=== PATIENT | female | born 1995 | race Caucasian/White ===

== ENCOUNTER 2021-07-16 23:10 | Outpatient (CLI) | payer OTHER ==
[~2021-07-16] VITALS: Ht 165.1 cm; Wt 86.8 kg
--- NOTE | 2021-07-16 23:15 | NUR ---
G1L0. 29-5. Ambulatory to LDR 5 with spouse. EFM and TOCO explained and applied. Pt reports getting home from a 11 hour car ride from [place] for her baby shower when she went to go see her cat. She turned to look up the stairs when her sock slipped and she fell down her carpet stairs on her right side all the way down. Pt reports feeling "sore" to her right side and when she took a deep breath in she felt a sharp pain to her right lower quadrent of abdomen. Denies taking anything for pain. Denies leaking of fluids or vaginal bleeding. Pt states she has been having polly yepez contractions for the past couple weeks but has not had any contractions since her fall. Pt also reports minimal movement from baby since falling. Once pt laid in bed visual movement of fetus noted. Pt reports " this is the most movement I have had since the fall." Plan of care explained. Pt relieved once hearing FHR. 2340: at nurses station and reviews FHR strip. Update given. See physican notification. Pt and spouse updated on plan of care and observing for 4 hours.
[2021-07-16 23:30] VITALS: BP 117/72; PULSE 91; TEMP 98.3
[2021-07-16] MEDS ORDERED: ZOLOFT 100MG100 MG PO (23:30)
[2021-07-17] VITALS: BP 108/63; PULSE 86
--- NOTE | 2021-07-17 03:25 | NUR ---
Pt denies feeling contractions or pain. Category 1 FHR tracing. Reviewed discharge plan with patient and spouse and return precautions. Pt seen ambulating off unit with spouse and belongings.
== END 2021-07-17 03:30 | disposition home or self-care (01) ==
LOC: LDRO 23:10
DX: O9A.219 Injury, poisoning and certain other consequences of external causes complicating pregnancy, unspecified trimester (principal); Z3A.00 Weeks of gestation of pregnancy not specified; W10.9XXA Fall (on) (from) unspecified stairs and steps, initial encounter

== ENCOUNTER 2021-08-28 14:42 | Outpatient (CLI) | payer OTHER ==
[~2021-08-28] VITALS: Ht 165.1 cm; Wt 90.9 kg
[~2021-08-28 14:42] MED LIST: ZOLOFT 100MG100 MG PO
[2021-08-28 15:15] VITALS: BP 122/68; PULSE 125; TEMP 98.3
--- NOTE | 2021-08-28 15:31 | NUR ---
1455 PT ARRIVED TO L&D C/O CONTRACTIONS AND SUSPECTED ROM @ 1330. PT DENIES VAGINAL BLEEDING AND DECREASED MOVEMENT. PLACED IN ROOM 5 FOR FURTHER ASSESSMENT.
[2021-08-28] MEDS ORDERED: BENADRYL50 MG PO (15:45)
[2021-08-28] MEDS ORDERED: PNV-DHA1 SGL PO (15:46)
[2021-08-28] MEDS ORDERED: XYZAL5 MG PO (15:46)
--- NOTE | 2021-08-28 16:08 | NUR ---
1600- PT DISCHARGED FROM L&D IN STABLE CONDITION WITH NO COMPLAINTS. PT TO KEEP APPOINTMENT AND FOLLOW UP AT CLINIC ON 08/29/21. PT VERBALIZED UNDERSTANDING. LABOR PRECAUTIONS AND KICK COUNTS EXPLAINED TO PT. PT VERBALIZED UNDERSTANDING.
== END 2021-08-28 16:00 | disposition home or self-care (01) ==
LOC: LDRO 14:42
DX: Z34.93 Encounter for supervision of normal pregnancy, unspecified, third trimester (principal); Z3A.35 35 weeks gestation of pregnancy

== ENCOUNTER 2021-09-04 07:06 | Inpatient (IN) | payer OTHER ==
[~2021-09-04] VITALS: Ht 165.1 cm; Wt 92.7 kg
[~2021-09-04 07:06] MED LIST changes: +BENADRYL50 MG PO; +PNV-DHA1 SGL PO; +XYZAL5 MG PO
--- NOTE | 2021-09-04 21:00 | NUR ---
G1 at 36 weeks and 6 days gestation arrives to unit ambulatory for scheduled induction of labor. Pt oriented to room, call light within reach, bed in low and locked position. Clean gown on. US and toco explained and applied. Pt denies feeling strong contractions, denies LOF or vaginal bleeding. Reports good movement. Has PUPPPs rash and has severe episodes of itching. Takes 50 mg of benadryl PO every 4 hours. SVE fingertip/60/-3. Pt states she was told the cytotec would be placed vaginally but it is ordered as PO. Pt would prefer vaginal if possible. Admission assessment and vital signs completed.
[2021-09-04 21:30] VITALS: BP 130/81; PULSE 113; TEMP 98.4
--- NOTE | 2021-09-04 21:40 | NUR ---
18G IV started in left hand after 1 attempt. Admission labs obtained off IV site. Lactated Ringers infusing to gravity. Consents reviewed and signed with patient spouse. All questions answered.
[2021-09-04 22:00] VITALS: BP 122/75; PULSE 106
--- NOTE | 2021-09-04 22:05 | NUR ---
25 mcg of cytotec placed to posterior fornix of vagina per patients request. Pt positioned to wedge right for comfort. Reviewed plan of care. Bed in low and locked position, call light within reach.
[2021-09-04 22:15] VITALS: BP 121/56; PULSE 107
[2021-09-04 22:45] VITALS: BP 109/63; PULSE 99
[2021-09-04 22:55] LABS: BASO % 0.2 % (0.0-2.0); EOS # 0.2 K/mm3 (0.0-0.7); EOS % 2.3 % (0.0-4.0); GRAN # 7.4 K/mm3 (1.4-6.5); GRAN % 70.9 % (42.2-75.2); LYMPH # 1.9 K/mm3 (1.2-3.4); LYMPH % 18.3 % (20.0-51.0); MEAN CELL VOLUME 83 fl (80.0-100.0); MEAN CORPUSCULAR HGB CONC 32 g/dl (33.0-37.0); MEAN PLATELET VOLUME 11.5 fl (7.4-10.4); MONO # 0.8 K/mm3 (0.1-0.6); MONO % 7.7 % (1.7-9.3); PLATELET COUNT 231 K/mm3 (130-400); REDCELL DISTRIBUTION WIDTH-CV 14.5 % (11.5-14.5)
[2021-09-04 22:58] LABS: HEMATOCRIT 27.5 % (37.0-47.0); HEMOGLOBIN 8.9 g/dl (12.5-16.0); MEAN CORPUSCULAR HEMOGLOBIN 27 pg (27-31)
[2021-09-04 23:15] VITALS: BP 123/70; PULSE 97
[2021-09-04 23:45] VITALS: BP 125/74; PULSE 91
[2021-09-05] VITALS (46 sets, daily range): BP systolic 98–145; BP diastolic 51–82; PULSE 76–116; TEMP 97.7–98.6
--- NOTE | 2021-09-05 | NUR ---
Monitors off, pt up to bathroom to void. Pt appears to be uncomfortable with contractions and states she is feeling them every 2-3 minutes. Upon returning to bed, pt excessively scratching sides, abdomen, and back. States that the movement from getting out of bed triggered her itching. 0010 - Pt takes own benadryl 50 mg at this time. 0030 - Pt continues to scratch excessively and is visibly uncomfortable and tearful. Does not appear to be coping well. Difficulty tracing FHR at this time due to her scratching. 0040 - Pt remains to appear to be in a state of panic and not coping well due to her PUPPPs rash flaring up and scratching excessively. FHR tachycardic in the 180s. Contractions tracing every 1.5-3 minutes but patient does not complain of contraction pain at this time. Anti-itch lotion applied, ice packs provided. Encouraged patient to take slow deep breaths and try to relax.
[2021-09-05] MEDS ORDERED: PREDNISONE 2.52.5 MG PO (01:21)
--- NOTE | 2021-09-05 01:45 | NUR ---
Pt complaining of constant pain shooting down left leg. Assisted patient to change position at this time with immediate relief. Pt appears to be uncomfortable with contractions as well. SVE /-3. Reviewed with patient that since her cervix has changed since admission and she is feeling painful contractions, will evaluate in 2 hours to see if next dose of cytotec needs to be given. Pt verbalized understanding.
--- NOTE | 2021-09-05 03:00 | NUR ---
[id number] FHR tracing not recording on paper during this time. Refer to electronic record.
--- NOTE | 2021-09-05 04:02 | NUR ---
Monitors off, pt up to bathroom to void. Pt takes own benadryl orally, 50 mg. SVE /-.
--- NOTE | 2021-09-05 04:09 | NUR ---
SVE unchanged over the last 2 hours and patient does not appear to be uncomfortable with contractions. 25 mcg of cytotec placed to posterior fornix of vagina at this time. Reviewed plan of care. Call light within reach, bed in low and locked position. Spouse supportive at bedside.
--- NOTE | 2021-09-05 07:54 | NUR ---
0730 - UPDATE GIVEN TO DR PHILL, NO NEW ORDERS
--- NOTE | 2021-09-05 09:43 | NUR ---
FHT'S and CTXS INDETERMINATE D/T MATERNAL POSITION
--- NOTE | 2021-09-05 09:47 | NUR ---
FHT'S AND CTXS INDETERMINATE D/T MATERNAL POSITION, RN AT BEDSIDE ADJUSTING US. DR ROLES TO BEDSIDE, SVE DONE /-
--- NOTE | 2021-09-05 13:33 | NUR ---
PT REQUESTING EPIDURAL
--- NOTE | 2021-09-05 13:36 | NUR ---
[employer] TE[employer]ER NOTIFIED PT REQUESTING EPIDURAL, LR BOLUS STARTED
--- NOTE | 2021-09-05 13:42 | NUR ---
1245 - C KAITLIN ECHAVARRIA AND EDA FOLEY TO ROOM FOR EPIDURAL, PT SITTING UP ON SIDE OF BED, ANXIOUS ABOUT EPIDURAL
--- NOTE | 2021-09-05 13:44 | NUR ---
SITTING UP ON SIDE OF BED FOR EPIDURAL, FHT'S AND CTXS INDETERMINATE D/T MATERNAL POSITION
--- NOTE | 2021-09-05 13:48 | NUR ---
1315 - TO RIGHT SIDE AFTER EPIDURAL, PT MORE COMFORTABLE NOW, FHT'S INDETERMINATE, US ADJUSTED
--- NOTE | 2021-09-05 16:24 | NUR ---
UTERINE CTXS NOT TRACING D/T MATERNAL POSITION, TOCO ADJUSTED
--- NOTE | 2021-09-05 16:29 | NUR ---
SOLU CORTEF GIVEN IV PUSH. PT TAKES OWN PO BENADRYL
--- NOTE | 2021-09-05 18:00 | NUR ---
1750 - DELIVERY OF VIABLE FEMALE , NUCHAL CORD X1, REDUCED BY DR POLLOCK PRIOR TO DELIVERY OF BODY. SPONTANEOUS CRY PRESENT. HANDED TO FATHER, THEN TO MOTHERS ABD, DRIED AND STIMULATED.
--- NOTE | 2021-09-05 18:37 | NUR ---
@1830 RN at the bedside assesing pt. Patient AAOX4 in bed resting holding baby skin to skin with no apaprent sign of distress. Spouse at the bedside. Pt denies pain, dizziness, and blurry vision. Bed low with wheels locked. Table and call nolasco light within reach. Will continue to monitor patient.
--- NOTE | 2021-09-05 18:51 | NUR ---
1718 DR POLLOCK TO BEDSIDE, DAVID @ 1935 +1, 1725 CHAN CATHETER DC'D WITH 250CC URINE OUT
--- NOTE | 2021-09-05 18:54 | NUR ---
1732 INSTRUCTED PT ON PUSHING TECHNIQUES, PT BEGINS PUSHING WITH CONTRACTIONS RN REMAINS AT BEDSIDE, COACHING PT ON PUSHING AND MONITORING STATUS
--- NOTE | 2021-09-05 18:56 | NUR ---
174 DR POLLOCK TO ROOM FOR DELIVERY, FEET UP IN FOOT PEDALS, CARLOS PREP PERFORMED
--- NOTE | 2021-09-05 19:17 | NUR ---
@1900 RN assisted patient with and noticed that the pt breast nipple are flat and applied a nipple shield after educating the patient regarding the nipple shieled and latching methods/positions. Patient and spouse states an understanding.
--- NOTE | 2021-09-05 20:58 | NUR ---
@2030 Patient, baby and spouse was transferred over to room room 208 with belongings. The patient transported via wheelchair and baby via crib.
[2021-09-06] VITALS: BP 104/41; PULSE 99; TEMP 98.1
[2021-09-06 02:30] VITALS: BP 112/58; PULSE 76; TEMP 98
[2021-09-06 07:55] VITALS: BP 118/72; PULSE 109; TEMP 97.9
--- NOTE | 2021-09-06 09:27 | NUR ---
Initial visit; Parents thanked [employer] Magistrate for offering congratulations and God's blessings for the of their daughter. [employer] Magistrate thanked family for choosing [facility] to which patient commented that her experience here has been wonderful.
--- NOTE | 2021-09-06 18:30 | NUR ---
Report recieved. Resting in bed and eating at this time. Updated whiteboard and reviewed POC.
[2021-09-06 19:30] VITALS: BP 129/83; PULSE 85; TEMP 97.7
[2021-09-07 07:50] VITALS: BP 131/87; PULSE 80; TEMP 97.7
[2021-09-07] MEDS ORDERED: IBU800 M1 PO (09:45)
[2021-09-07] MEDS ORDERED: PREDNISONE10 MG PO (09:46)
--- NOTE | 2021-09-07 15:21 | NUR ---
1500 - DISCHARGE INSTRUCTIONS GIVEN TO PT AND , VERBALIZES GOOD UNDERSTANDING OF SELF AND INFANT INSTRUCTIONS. INFANT BRACELET REMOVED X1 AND VERIFIED WITH MOTHERS
--- NOTE | 2021-09-07 16:19 | NUR ---
1606 - DISMISSED AMBULATORY WITH INFANT, ACCOMPANIED BY EMBER AND STAFF
== END 2021-09-07 16:06 | disposition home or self-care (01) | DRG 807 ==
LOC: LDR 07:06 → OB 20:53
PROVIDERS: ADMIT Obstetrics & Gynecology
PROC: 3E0P7VZ Introduction of Hormone into Female Reproductive, Via Natural or Artificial Opening (ICD-10-PCS; 2021-09-04)
PROC: 10E0XZZ Delivery of Products of Conception, External Approach (ICD-10-PCS; principal; 2021-09-05)
PROC: 0KQM0ZZ Repair Perineum Muscle, Open Approach (ICD-10-PCS; 2021-09-05)
PROC: 3E033VJ Introduction of Other Hormone into Peripheral Vein, Percutaneous Approach (ICD-10-PCS; 2021-09-05)
PROC: 10907ZC Drainage of Amniotic Fluid, Therapeutic from Products of Conception, Via Natural or Artificial Opening (ICD-10-PCS; 2021-09-05)
DX: O26.86 Pruritic urticarial papules and plaques of pregnancy (PUPPP) (principal); Z37.0 Single live birth; O69.81X0 Labor and delivery complicated by cord around neck, without compression, not applicable or unspecified; O99.344 Other mental disorders complicating childbirth; F41.8 Other specified anxiety disorders; Z79.899 Other long term (current) drug therapy; Z3A.37 37 weeks gestation of pregnancy; O70.1 Second degree perineal laceration during delivery
CPT/HCPCS: J1720; J2590; J7120; J7512